=== PATIENT | male | born 1990 | race Caucasian/White ===

== ENCOUNTER 2016-08-31 22:17 | Emergency (ER) | payer SELFPAY ==
[~2016-08-31] VITALS: Ht 162.6 cm; Wt 75.0 kg
[2016-08-31 22:19] VITALS: BP 141/89; PULSE 84; RESP 16; TEMP 98.4; O2SAT 99
[2016-08-31] MEDS ORDERED: KETOROLAC TROMETHAMINE 60 MG/2 ML (IM) VIAL IM ONE (23:15)
[2016-08-31] MEDS ORDERED: MOBI15TA PO (23:19)
[2016-08-31] MEDS ORDERED: CYCL1TAB29 PO (23:19)
--- NOTE | 2016-08-31 23:19 | PD ---
HPI Chief Complaint: Back/ Neck Pain or Injury Time Seen by Provider: 23:08 Travel History International Travel<30 days: No Contact w/Intl Traveler<30days: No Traveled to known affect area: No History of Present Illness HPI 26 years of male complaining of low back pain. Patient has history of L4-L5 fracture in June of this year. Patient states that he has been taking Flexeril and Lortab 7.5 as needed for pain. Patient states that he is on location and does not have the medications with him. Patient states that he was doing some bending and heavy lifting today started having low back pain. Patient denies any fall. Patient denies any focal weakness or numbness of lower extremity. PFSH Past Medical History Medical History: Denies Significant Hx Musculoskeletal: Yes (L4-5 FRACTURE) Past Surgical History Surgical History: No Previous Surgery Social History Alcohol Use: No Tobacco Use: No Substance Use: No Allergies-Medications (Allergen,Severity, Reaction): Coded Allergies: No Known Allergies (Unverified , 08/31/16) Reported Meds & Prescriptions Reported Meds & Active Scripts Active Flexeril (Cyclobenzaprine HCl) 10 Mg Tab 10 Mg PO TID Mobic (Meloxicam) 15 Mg Tab 15 Mg PO DAILY Review of Systems General / Constitutional: No: Fever Eyes: No: Visual changes HENT: No: Headaches Cardiovascular: No: Chest Pain or Discomfort Respiratory: No: Shortness of Breath Gastrointestinal: No: Abdominal Pain Genitourinary: No: Dysuria Musculoskeletal: No: Pain Skin: No Rash Neurologic: No: Weakness Psychiatric: No: Depression Endocrine: No: Polydipsia Hematologic/Lymphatic: No: Easy Bruising Physical Exam Narrative GENERAL: Well-nourished, well-developed patient. SKIN: Focused skin assessment warm/dry. HEAD: Normocephalic. EYES: No scleral icterus. No injection or drainage. NECK: Supple, trachea midline. No JVD or lymphadenopathy. CARDIOVASCULAR: Regular rate and rhythm without murmurs, gallops, or rubs. RESPIRATORY: Breath sounds equal bilaterally. No accessory muscle use. GASTROINTESTINAL: Abdomen soft, non-tender, nondistended. MUSCULOSKELETAL: No cyanosis, or edema. BACK: Patient has moderate tenderness and palpation of low lumbar area,, without obvious deformity. No CVA tenderness. Negative straight leg raising. neurologic exam normal. Data Data Last Documented VS Vital Signs Date Time Temp Pulse Resp B/P Pulse Ox O2 Delivery O2 Flow Rate FiO2 08/31/16 22:19 98.4 84 16 141/89 99 Room Air Orders Spine, Lumbar - Ltd (Ap & Lat) (08/31/16 23:12) Ketorolac Inj (Toradol Inj) (08/31/16 23:15) MDM Medical Decision Making Medical Screen Exam Complete: Yes Emergency Medical Condition: Yes Interpretation(s) 23:54 PM. X-ray lumbar spine show no acute bony injury. Differential Diagnosis Differential diagnosis including acute exacerbation of low back pain, fracture, HNP. Narrative Course 26 years old male with low back pain. History of fractured L4-L5 recently. Toradol 60 mg IM. Diagnosis Primary Impression: Acute exacerbation of chronic low back pain Patient Instructions: General Instructions Additional Instructions: Mobic Flexeril as needed for pain. Follow-up with personal physician. Return if worse. Med/Other Pt SpecificInfo: Prescription(s) given Scripts Cyclobenzaprine (Flexeril)10 Mg Tab10 Mg PO TID #60 TAB Prov:Shayne Jasso MD 08/31/16 Meloxicam (Mobic)15 Mg Tab15 Mg PO DAILY #20 TAB Prov:Shayne Jasso MD 08/31/16 Disposition: 01 DISCHARGE HOME Condition: Stable Shayne Jasso MD Aug 31, 2016 23:19
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
== END 2016-09-01 00:11 | disposition home or self-care (01) ==
LOC: NEPD 22:17
DX: M54.5 Low back pain (principal); Z79.899 Other long term (current) drug therapy
CPT/HCPCS: 72100; 96372; 99284; J1885